=== PATIENT | male | born 1960 | race Caucasian/White ===

== ENCOUNTER 2024-09-16 18:34 | Inpatient (IN) ==
[2024-09-16] MEDS: methylPREDNISolone SOD SUCC 125 MG/2 ML VIAL IV ONE (18:52)
[2024-09-16] MEDS: IPRATROPIUM/ALBUTEROL 3 ML AMPUL.NEB NEB ONE ×3 (18:54→23:31)
[2024-09-16 19:29] LABS: Basophils # (Auto) 0.04 K/mcL (0.00-0.30); Basophils % (Auto) 0.6 % (0.0-2.0); Eosinophils # (Auto) 0.42 K/mcL (0.00-0.70); Eosinophils % (Auto) 6.6 % (0.0-7.0); Hematocrit 42.6 % (40.1-51.0); Hemoglobin 14.2 g/dL (13.7-17.5); Lymphocytes # (Auto) 1.29 K/mcL (1.50-4.80); Lymphocytes % (Auto) 20.2 % (15.5-49.0); Mean Cell Volume 91.6 fL (80.0-100.0); Mean Corpuscular HGB Conc 33.3 g/dL (31.0-36.0); Monocytes # (Auto) 0.49 K/mcL (0.10-0.90); Monocytes % (Auto) 7.7 % (1.0-12.0); Neutrophils % (Auto) 64.9 % (38.0-78.0); Platelet Count 211 K/mcL (140-440); RBC 4.65 M/mcL (4.63-6.08); Red Cell Distribution Width 12.2 % (11.5-14.5); WBC 6.4 K/mcL (4.5-11.0)
[2024-09-16 19:45] LABS: ALT/SGPT 17 U/L (<40); AST/SGOT 37 U/L (<40); Albumin 4.1 gm/dL (3.2-5.2); Albumin/Globulin Ratio 1.4 (1.0-2.3); Alkaline Phosphatase 107 U/L (39-117); Bilirubin,Total 0.5 mg/dL (0.1-1.0); Blood Urea Nitrogen 18 mg/dL (8-23); Calcium 8.9 mg/dL (8.6-10.4); Carbon Dioxide 28 mmol/L (22-30); Chloride 102 mmol/L (96-108); Globulin 2.9 gm/dL (2.2-3.7); Glomerular Filtration Rate 90; Glucose 99 mg/dL (70-105); Potassium 4.4 mmol/L (3.3-5.1); Sodium 140 mmol/L (133-145)
[2024-09-16] MEDS: ALBUTEROL SULFATE 2.5 MG/3 ML NEBULIZER NEB ONE (19:47)
[2024-09-16] MEDS: MAGNESIUM SULFATE 2 GM/50 ML BAG IV ONE (20:21)
[2024-09-16 21:31] LABS: C-Reactive Protein 0.42 mg/dL (0.03-0.80); Phosphorous 3.9 mg/dL (2.5-4.5)
[2024-09-16] MEDS: IPRATROPIUM/ALBUTEROL 3 ML AMPUL.NEB NEB SCH (22:49)
[2024-09-16] MEDS ORDERED: POLYETHYLENE GLYCOL 3350 17 GM PACKET PO PRN (23:26)
[2024-09-16] MEDS ORDERED: MELATONIN 3 MG TABLET PO PRN (23:26)
[2024-09-16] MEDS ORDERED: SENNOSIDES 1 TABLET PO PRN (23:26)
[2024-09-16] MEDS ORDERED: ONDANSETRON 4 MG/2 ML VIAL IV PRN (23:26)
[2024-09-16] MEDS ORDERED: ACETAMINOPHEN 325 MG TABLET PO PRN (23:26)
[2024-09-16] MEDS: 0.9 % SODIUM CHLORIDE 10 ML SYRINGE IV SCH (23:49)
[2024-09-17] MEDS: IPRATROPIUM/ALBUTEROL 3 ML AMPUL.NEB NEB PRN (01:44)
[2024-09-17] MEDS: IPRATROPIUM/ALBUTEROL 3 ML AMPUL.NEB NEB ONE ×3 (01:48→07:17)
[2024-09-17] MEDS: morphine 2 MG/ML VIAL IV ONE ×3 (01:49→11:45)
[2024-09-17] MEDS: MAGNESIUM SULFATE 2 GM/50 ML BAG IV ONE ×2 (02:00→02:10)
[2024-09-17] MEDS: morphine 2 MG/ML VIAL ONE ×3 (02:09→19:08)
[2024-09-17] MEDS: ALBUTEROL SULFATE 2.5 MG/3 ML NEBULIZER ONE ×4 (02:26→06:45)
[2024-09-17 06:42] LABS: Basophils # (Auto) 0 K/mcL (0.00-0.30); Basophils % (Auto) 0 % (0.0-2.0); Eosinophils # (Auto) 0 K/mcL (0.00-0.70); Eosinophils % (Auto) 0 % (0.0-7.0); Hematocrit 43.2 % (40.1-51.0); Hemoglobin 14.4 g/dL (13.7-17.5); Lymphocytes % (Auto) 8.1 % (15.5-49.0); Mean Cell Volume 92.5 fL (80.0-100.0); Mean Corpuscular HGB Conc 33.3 g/dL (31.0-36.0); Mean Platelet Volume 10.1 fL (8.8-12.5); Monocytes # (Auto) 0.06 K/mcL (0.10-0.90); Monocytes % (Auto) 1.6 % (1.0-12.0); Platelet Count 184 K/mcL (140-440); RBC 4.67 M/mcL (4.63-6.08); Red Cell Distribution Width 12.1 % (11.5-14.5); WBC 3.7 K/mcL (4.5-11.0)
[2024-09-17 07:05] LABS: Blood Urea Nitrogen 16 mg/dL (8-23); Calcium 8.5 mg/dL (8.6-10.4); Carbon Dioxide 24 mmol/L (22-30); Chloride 101 mmol/L (96-108); Glomerular Filtration Rate 95; Glucose 188 mg/dL (70-105); Potassium 4.2 mmol/L (3.3-5.1); Sodium 138 mmol/L (133-145)
[2024-09-17] MEDS: LORazepam 2 MG/ML VIAL IV ONE ×2 (07:31→13:50)
[2024-09-17] MEDS ORDERED: methylPREDNISolone SOD SUCC 125 MG/2 ML VIAL IV SCH (09:00)
[2024-09-17] MEDS: ENOXAPARIN 40 MG/0.4 ML SYRINGE SQ SCH (09:09)
[2024-09-17] MEDS: methylPREDNISolone SOD SUCC 125 MG/2 ML VIAL IV SCH (09:09)
[2024-09-17] MEDS: 0.9 % SODIUM CHLORIDE 1,000 ML IV SCH (09:13)
[2024-09-17] MEDS: guaiFENesin/CODEINE 10 ML UDC PO PRN (11:46)
[2024-09-17] MEDS ORDERED: LORazepam 1 MG TABLET PO PRN (12:32)
[2024-09-17] MEDS: BUDESONIDE 0.5 MG/2 ML AMPUL.NEB NEB SCH (18:13)
[2024-09-17] MEDS: morphine 2 MG/ML VIAL IV PRN (18:59)
[2024-09-18 07:06] LABS: Basophils # (Auto) 0 K/mcL (0.00-0.30); Basophils % (Auto) 0 % (0.0-2.0); Eosinophils # (Auto) 0 K/mcL (0.00-0.70); Eosinophils % (Auto) 0 % (0.0-7.0); Hematocrit 41.8 % (40.1-51.0); Hemoglobin 13.6 g/dL (13.7-17.5); Lymphocytes # (Auto) 0.66 K/mcL (1.50-4.80); Lymphocytes % (Auto) 4.7 % (15.5-49.0); Mean Corpuscular HGB Conc 32.5 g/dL (31.0-36.0); Monocytes # (Auto) 0.43 K/mcL (0.10-0.90); Monocytes % (Auto) 3.1 % (1.0-12.0); Neutrophils % (Auto) 91.9 % (38.0-78.0); Platelet Count 213 K/mcL (140-440); Red Cell Distribution Width 12.4 % (11.5-14.5)
[2024-09-18 07:18] LABS: Blood Urea Nitrogen 22 mg/dL (8-23); Calcium 8.6 mg/dL (8.6-10.4); Carbon Dioxide 23 mmol/L (22-30); Chloride 102 mmol/L (96-108); Glomerular Filtration Rate 100; Glucose 153 mg/dL (70-105); Potassium 4.7 mmol/L (3.3-5.1); Sodium 138 mmol/L (133-145)
[2024-09-18] MEDS: AZITHROMYCIN 250 MG TABLET PO SCH (20:08)
[2024-09-19 06:00] LABS: Basophils # (Auto) 0 K/mcL (0.00-0.30); Basophils % (Auto) 0 % (0.0-2.0); Eosinophils # (Auto) 0 K/mcL (0.00-0.70); Eosinophils % (Auto) 0 % (0.0-7.0); Hematocrit 42.9 % (40.1-51.0); Hemoglobin 13.9 g/dL (13.7-17.5); Lymphocytes # (Auto) 0.87 K/mcL (1.50-4.80); Lymphocytes % (Auto) 5.8 % (15.5-49.0); Mean Cell Volume 95.3 fL (80.0-100.0); Mean Corpuscular HGB Conc 32.4 g/dL (31.0-36.0); Monocytes # (Auto) 0.34 K/mcL (0.10-0.90); Monocytes % (Auto) 2.3 % (1.0-12.0); Neutrophils % (Auto) 91.4 % (38.0-78.0); Platelet Count 215 K/mcL (140-440); Red Cell Distribution Width 12.5 % (11.5-14.5); WBC 14.9 K/mcL (4.5-11.0)
[2024-09-19] MEDS: IPRATROPIUM/ALBUTEROL 3 ML AMPUL.NEB NEB SCH (06:15)
[2024-09-19 06:54] LABS: Blood Urea Nitrogen 19 mg/dL (8-23); Calcium 8.7 mg/dL (8.6-10.4); Carbon Dioxide 28 mmol/L (22-30); Chloride 99 mmol/L (96-108); Glomerular Filtration Rate 95; Glucose 193 mg/dL (70-105); Potassium 4.5 mmol/L (3.3-5.1); Sodium 137 mmol/L (133-145)
[2024-09-19] MEDS: AZITHROMYCIN 250 MG TABLET PO SCH (09:12)
== END 2024-09-19 13:35 | disposition home or self-care (01) | DRG 189 ==
LOC: ED 18:34 → MEDSUR 23:12 → ICU 09-17 06:57
PROVIDERS: ADMIT Student in an Organized Health Care Education/Training Program; ATTEND Internal Medicine